=== PATIENT | female | born 1960 | race Caucasian/White ===

== ENCOUNTER → 2018-05-28 | Outpatient (CLI) | payer OTHER ==
[~2018-05-28] MED LIST: ASPI-715 PO; ATOR40TA24 PO; LIPITOR
--- NOTE | 2018-06-06 15:20 | RADIOLOGY IMAGING REPORT ---
FACILITY: [facility] [place] PATIENT NAME: ALEJANDRO HUANG : [id number] MR: [id number] V: [id number] EXAM DATE: [id number] ORDERING PHYSICIAN: KRISSY MCNEIL TECHNOLOGIST: Alma Rubi PROCEDURE:BILATERAL DIGITAL SCREENING MAMMOGRAM WITH CAD ASSISTED INTERPRETATION & 3D TOMOSYNTHESIS COMPARISON:[facility] INDICATIONS:SCREENING FINDINGS: The breasts are heterogeneously dense. A few benign appearing calcifications are scattered bilaterally. DIAGNOSTIC CATEGORY 1--NEGATIVE. RECOMMENDATIONS: ROUTINE MAMMOGRAM AND CLINICAL EVALUATION IN 1 YR. IMPRESSION: BIRADS 1: Negative. Dictated by: Kailash Weaver M.D. on 05/29/2018 at 14:41 Transcribed by: MARIO on 05/29/2018 at 14:47 Approved by: Zechariah Acosta on 06/06/2018 at 15:19 [facility]
== END ==
LOC: MAMO 00:55
PROVIDERS: ATTEND Family Medicine
DX: Z12.31 Encounter for screening mammogram for malignant neoplasm of breast (principal)
CPT/HCPCS: 77063; 77067